=== PATIENT | female | born 1985 | race Caucasian/White ===

== ENCOUNTER 2023-04-09 12:54 | Outpatient (CLI) | payer OTHER ==
[~2023-04-09] VITALS: Ht 157.5 cm; Wt 64.5 kg
[~2023-04-09 12:54] MED LIST: BCP TD; LOESTRIN 1/20 21DAY PO; LORTAB 5/500 501 TAB PO; PHENERGAN 25 TA25 MG PO; ZITHROMAX TRI-500 MG PO; ZOFRAN 4MG T4 MG/TAB PO
[2023-04-09 13:00] VITALS: BP 112/78; PULSE 78; TEMP 98.1
[2023-04-09] MEDS ORDERED: PRENATAL (13:28)
--- NOTE | 2023-04-09 13:44 | NUR ---
1300 PATIENT HERE FOR COMPLAINTS OF DECREASE MOVEMENT. AND WAS HAVING REGULAR CONTRACTIONS YESTERDAY AND APPLICATION SUPPORT CONSULTANT. EFM ON FHT 130 BABY VERY ACTIVE. OCCASIONAL IRREGULAR CONTRACTIONS. PALPATE MILD. ASSESSMENT COMPLETED. SVE /-2 UNCHANGED FROM LAST WEEK. STATES CONTRACTIONS HAVE GOT MUCH MORE MILD. DR CROCKETT UPDATED AND STATES SHE MAY GO HOME AFTER A REACTIVE STRUP
[2023-04-09 13:57] VITALS: BP 106/61; PULSE 71
--- NOTE | 2023-04-09 14:00 | NUR ---
1400 FHT 140 BABY VERY ACTIVE. SVE UNCHANGED. ORDERS TO DISMISS TO HOME. ALL DISCAHRGE INSTRUCTIONS GIVEN WITH VERBAL UNDERSTANDING.
== END 2023-04-09 14:00 | disposition home or self-care (01) ==
LOC: LDRO 12:54
DX: O36.8130 Decreased fetal movements, third trimester, not applicable or unspecified (principal); O47.03 False labor before 37 completed weeks of gestation, third trimester; Z3A.36 36 weeks gestation of pregnancy

== ENCOUNTER 2023-04-27 06:13 | Inpatient (IN) | payer OTHER ==
[~2023-04-27] VITALS: Ht 157.5 cm; Wt 66.8 kg
[2023-04-27] VITALS (28 sets, daily range): BP systolic 74–130; BP diastolic 44–75; PULSE 57–90; TEMP 97.7–98.2
[~2023-04-27 06:13] MED LIST changes: +PRENATAL
[2023-04-27] MEDS ORDERED: LR & Oxytocin 500 ML IV SCH (06:15)
[2023-04-27] MEDS ORDERED: LR 1,000 ML IV SCH (06:15)
--- NOTE | 2023-04-27 06:25 | NUR ---
PT AMBULATORY TO LR4 WITH SPOUSE. CHANGED INTO CLEAN GOWN. PT HERE FOR INDUCTION OF LABOR. FHR MONITOR/TOCO APPLIED. PT DENIES ANY VAGINAL BLEEDING, LEAKING OF FLUID, REGULAR CONTRACTIONS, OR DECREASED MOVEMENT. MOVEMENT AUDIBLE ON FHR MONITOR. PT ORIENTED TO ROOM. PLAN OF CARE DISCUSSED. PT VERBALIZES UNDERSTANDING.
[2023-04-27] MEDS ORDERED: PREDNISONE10 MG (06:41)
[2023-04-27 07:19] LABS: BASO % 0.2 % (0.0-2.0); EOS % 0.6 % (0.0-4.0); GRAN # 4.8 K/mm3 (1.4-6.5); GRAN % 73.3 % (42.2-75.2); HEMATOCRIT 37.1 % (37.0-47.0); HEMOGLOBIN 12.9 g/dl (12.5-16.0); LYMPH # 1.1 K/mm3 (1.2-3.4); LYMPH % 17.3 % (20.0-51.0); MEAN CELL VOLUME 90 fl (80.0-100.0); MEAN CORPUSCULAR HEMOGLOBIN 31 pg (27-31); MEAN CORPUSCULAR HGB CONC 35 g/dl (33.0-37.0); MEAN PLATELET VOLUME 11.3 fl (7.4-10.4); MONO # 0.5 K/mm3 (0.1-0.6); MONO % 7.7 % (1.7-9.3); PLATELET COUNT 129 K/mm3 (130-400); RED BLOOD COUNT 4.12 M/mm3 (4.10-5.30); REDCELL DISTRIBUTION WIDTH-CV 12.2 % (11.5-14.5)
[2023-04-27 07:35] LABS: ALBUMIN 2.9 gm/dL (3.5-5.0); BILIRUBIN,TOTAL 0.5 mg/dL (0.2-1.2); CALCIUM 9.1 mg/dL (8.4-10.2); CREATININE, serum 0.73 mg/dL (0.57-1.11); POTASSIUM 3.9 mmol/L (3.5-4.5); TOTAL PROTEIN 5.5 gm/dL (6.2-8.1)
[2023-04-27] MEDS ORDERED: ROPivacaine PF 0.2% 200 ML IV ONE (09:59)
[2023-04-27] MEDS ORDERED: Ondansetron 4 MG/2 ML VIAL IV PRN (10:00)
[2023-04-27] MEDS ORDERED: diphenhydrAMINE 50 MG/ML 1 ML VIAL IV PRN (10:00)
[2023-04-27] MEDS ORDERED: diphenhydrAMINE 25 MG CAP PO PRN (10:00)
[2023-04-27] MEDS ORDERED: Naloxone 0.4 MG/ML VIAL IV PRN ×2 (10:00→11:45)
[2023-04-27] MEDS ORDERED: ePHEDrine 50 MG/10 ML VIAL IV PRN (10:00)
[2023-04-27] MEDS ORDERED: Lidocaine PF 2% (20 MG/ML) 5 ML VIAL ONE (10:02)
[2023-04-27] MEDS ORDERED: Carboprost 250 MCG/ML AMP IM ONE ×2 (11:30→11:45)
[2023-04-27] MEDS ORDERED: Ibuprofen 800 MG TAB PO SCH (11:45)
[2023-04-27] MEDS ORDERED: Diphenoxylate/Atropine 2.5-0.025 MG TAB PO PRN (11:45)
[2023-04-27] MEDS ORDERED: Magnes Hydrox (MOM) 80 MG/ML 30 ML CUP PO PRN (11:45)
[2023-04-27] MEDS ORDERED: Loratadine 10 MG TAB PO PRN (11:45)
[2023-04-27] MEDS ORDERED: Witch Hazel 50% Pads Bulk TUB TP PRN (11:45)
[2023-04-27] MEDS ORDERED: Phenylephrine/Mineral Oil/Petrolatum 57 GM TUBE RC PRN (11:45)
[2023-04-27] MEDS ORDERED: Measles/Mumps/Rubella Virus Vaccine Live w Diluent 0.5 ML VIAL SQ SCH (11:45)
[2023-04-27] MEDS ORDERED: ceFAZolin 2 G in Water For Injection,Sterile 20 ML IV ONE (11:45)
[2023-04-27] MEDS ORDERED: oxyCODONE 5 MG TAB PO PRN (11:45)
[2023-04-27] MEDS ORDERED: Mag/Al Hydrox/Simeth Susp 30 ML CUP PO PRN (11:45)
--- NOTE | 2023-04-27 12:15 | NUR ---
1027 DR DAWSON CALLED FOR DELIVERY 1034 DR DAWSON IN PT'S ROOM SETTING UP FOR DELIVERY DR DAWSON, THIS RN, Holden LIN RN AND Dena HUSSEIN RN ARE AT PT'S BEDSIDE FOR DELIVERY 1040 PT BEGINS PUSHING WITH CONTRACTIONS 1049 SPONTANEOUS VAGINAL DELIVERY OF VIABLE MALE . TO MOTHER'S ABDOMEN. BULB SUCTIONED AND STIMULATED. CORD STOPS PULSATING. CORD CLAMPED BY DR DAWSON AND CUT BY FOB. INFANT TO MOTHER'S CHEST FOR SKIN TO SKIN. STRAIGHT CATH DONE BY DR DAWSON 150CC NOTED. PLACENTA NOT DESCENDING. FUNDAL MASSAGE AND TRACTION DONE BY DR DAWSON. 1118 DR DAWSON MANUALLY EXTRACTS PLACENTA. PT FEELING POORLY. LARGE AMOUNT OF BLOOD DELIVERS WITH PLACENTA. PITOCIN BOLUS STARTED PER PROTOCOL. THIS RN CALLS IN Dena JACOB RN FOR ASSISTANCE. 1123 HEMABATE GIVEN IM BY Dena JAOCB RN. BLEEDING IMPROVING. PERICARE DONE. PT REPOSITIONED. ICE PACK PAD PLACED. 1145 THIS RN PERFORMS FUNDAL MASSAGE SCANT AMT OF BLEEDING NOTED 1155 DR DAWOSN DOES FUNDAL MASSAGE BEFORE LEAVING UNIT. CLOT EXPRESSED. DR DAWSON ORDERS METHERGINE. 1201 METHERGINE GIVEN IM. PT FEELING BETTER AND BLEEDING IMPROVING
[2023-04-27] MEDS ORDERED: Acetaminophen 500 MG TAB PO SCH (12:30)
[2023-04-27] MEDS ORDERED: Methylergonovine 0.2 MG/ML 1 ML AMPUL IM ONE (13:30)
[2023-04-27] MEDS ORDERED: Sennosides/Docusate 8.6-50 MG TAB PO SCH (17:00)
[2023-04-27 19:04] LABS: BASO % 0.1 % (0.0-2.0); EOS % 0.1 % (0.0-4.0); GRAN % 86.3 % (42.2-75.2); HEMATOCRIT 37.2 % (37.0-47.0); HEMOGLOBIN 12.8 g/dl (12.5-16.0); LYMPH % 7.4 % (20.0-51.0); MEAN CELL VOLUME 90 fl (80.0-100.0); MEAN CORPUSCULAR HEMOGLOBIN 31 pg (27-31); MEAN CORPUSCULAR HGB CONC 34 g/dl (33.0-37.0); MEAN PLATELET VOLUME 11.1 fl (7.4-10.4); MONO # 0.8 K/mm3 (0.1-0.6); MONO % 5.5 % (1.7-9.3); PLATELET COUNT 145 K/mm3 (130-400); RED BLOOD COUNT 4.14 M/mm3 (4.10-5.30); REDCELL DISTRIBUTION WIDTH-CV 12.3 % (11.5-14.5)
[2023-04-27] MEDS ORDERED: traZODone 50 MG TAB PO PRN (21:00)
[2023-04-27] MEDS ORDERED: Rho(D) Imm Globulin 1,500 UNITS (300 MCG)/2 ML SYRINGE IV\\IM SCH (23:01)
[2023-04-28] MEDS ORDERED: Ibuprofen 800 MG TAB PO SCH
[2023-04-28 03:20] VITALS: BP 102/55; PULSE 68; TEMP 98.3
[2023-04-28] MEDS ORDERED: IBU800 M1 PO (07:35)
[2023-04-28 07:55] VITALS: BP 115/63; PULSE 67; TEMP 98
[2023-04-28] MEDS ORDERED: Acetaminophen 500 MG TAB PO SCH (09:30)
--- NOTE | 2023-04-28 09:38 | NUR ---
Initial visit attempt; Hearing Consult in progress, Data Power Consultant left card offering congratulations and God's blessings for the of their son and information regarding the availability of Spiritual Care at [facility].
== END 2023-04-28 11:55 | disposition home or self-care (01) | DRG 806 ==
LOC: LDR 06:13 → OB 06:13 → LDR 12:18 → OB 14:00
PROVIDERS: ADMIT Student in an Organized Health Care Education/Training Program
PROC: 10E0XZZ Delivery of Products of Conception, External Approach (ICD-10-PCS; principal; 2023-04-27)
PROC: 10D17Z9 Manual Extraction of Products of Conception, Retained, Via Natural or Artificial Opening (ICD-10-PCS; 2023-04-27)
PROC: 3E033VJ Introduction of Other Hormone into Peripheral Vein, Percutaneous Approach (ICD-10-PCS; 2023-04-27)
PROC: 10907ZC Drainage of Amniotic Fluid, Therapeutic from Products of Conception, Via Natural or Artificial Opening (ICD-10-PCS; 2023-04-27)
DX: O24.420 Gestational diabetes mellitus in childbirth, diet controlled (principal); O63.9 Long labor, unspecified; Z37.0 Single live birth; O99.12 Other diseases of the blood and blood-forming organs and certain disorders involving the immune mechanism complicating childbirth; O72.1 Other immediate postpartum hemorrhage; Z3A.39 39 weeks gestation of pregnancy; O26.893 Other specified pregnancy related conditions, third trimester; D69.59 Other secondary thrombocytopenia; O43.123 Velamentous insertion of umbilical cord, third trimester; Z67.21 Type B blood, Rh negative; Z23 Encounter for immunization
CPT/HCPCS: J0690; J2210; J2590; J2791; J2795; J7120

== ENCOUNTER 2023-10-27 08:29 | Day surgery (SDC) | payer OTHER ==
[~2023-10-27] VITALS: Ht 157.5 cm; Wt 50.4 kg
[~2023-10-27 08:29] MED LIST changes: +IBU800 M1 PO; +LR 1,000 ML IV SCH; +Ondansetron 4 MG/2 ML VIAL IV PRN; +PREDNISONE10 MG
[2023-10-27] MEDS ORDERED: Lidocaine PF 2% (20 MG/ML) 5 ML VIAL ONE (09:18)
[2023-10-27 09:24] VITALS: BP 101/70; PULSE 64; TEMP 97.6
[2023-10-27 10:00] VITALS: BP 82/71; PULSE 58; TEMP 97.5
[2023-10-27 10:15] VITALS: BP 91/67; PULSE 60
[2023-10-27 10:30] VITALS: BP 96/60; PULSE 64
--- NOTE | 2023-10-27 10:50 | NUR ---
1000 RETURNS TO ROOM 9 PER CART. AWAKE, ALERT. RESP UNLABORED. AMBULATES TO RECLINER WITH STANDBY ASSIST. DENIES NAUSEA OR ABD PAIN. VITAL SIGNS OBTAINED. CALL LIGHT AT SIDE 1015 TOLERATES PO COFFEE AND MUFFIN WITHOUT NAUSEA. DISCHARGE INSTRUCTIONS REVIEWED. PATIENT VERALIZES UNDERSTANDING. COPY PROVIDED IN DISCHARGE FOLDER 1020 DR CONNOLLY HERE TO SEE PATIENT 1035 DRESSES SELF, THEN SITS IN RECLINER AWAITING ARRIVAL OF FRIEND FOR TRANSPORT HOME
== END 2023-10-27 10:50 | disposition home or self-care (01) ==
LOC: SDCO 08:29
DX: Z12.11 Encounter for screening for malignant neoplasm of colon (principal); Z80.0 Family history of malignant neoplasm of digestive organs
CPT/HCPCS: J2704; J7120